=== PATIENT | male | born 1985 | race Caucasian/White ===

== ENCOUNTER 2017-07-24 19:45 | Emergency (ER) | payer BC ==
[~2017-07-24] VITALS: Ht 188 cm; Wt 107.8 kg
[~2017-07-24 19:45] MED LIST: MYCOPHENOLATE500 MG PO; PREDNISONE10 MG PO; URSODIOL500 MG PO; ZYRTEC10 M3 PO
[2017-07-24 20:30] LABS: HEMATOCRIT 42.7 % (38.0-50.0); MCHC 32.6 G/DL (30.0-36.0); MCV 89.1 FL (86-99); MEAN PLAT.VOLUME 9.5 uM^3 (9.0-12.4); PLATELET COUNT 177 K/uL (156-360); RBC DIS.WIDTH-CV 13.1 % (11.8-14.6); RBC DIS.WIDTH-SD 42.9 % (39-53); RED BLOOD COUNT 4.79 M/uL (4.00-5.50)
[2017-07-24 20:43] LABS: CHLORIDE 108 mEq/L (99-109); POTASSIUM 4.6 mEq/L (3.7-5.4); SODIUM 141 mEq/L (136-147)
[2017-07-24 20:44] LABS: GLUCOSE 88 mg/dL (70-99)
[2017-07-24 20:46] LABS: ANION GAP 9 MEQ/L (2-14)
[2017-07-24 20:48] LABS: GFR ESTIMATE (CALCULATED) > 59 mL/min/
[2017-07-24 20:49] LABS: UREA NITROGEN (BUN) 22 mg/dL (9-23)
[2017-07-24 20:50] LABS: TROP-I INTERPRETATION NEGATIVE; TROPONIN-I < 0.01 ng/mL (0.0-0.30)
[2017-07-24 21:48] LABS: D-DIMER ELISA < 150.00 ng/mLDDU (<230)
[2017-07-24 23:26] LABS: TROP-I INTERPRETATION NEGATIVE; TROPONIN-I < 0.01 ng/mL (0.0-0.30)
[2017-07-24 23:40] VITALS: BP 136/77
== END 2017-07-24 23:45 | disposition home or self-care (01) ==
LOC: EME 19:45
PROVIDERS: Physician Assistant
DX: R07.9 Chest pain, unspecified (principal); K75.4 Autoimmune hepatitis
CPT/HCPCS: 71020; 80048; 84484; 85027; 85379; 93005; 99281; 99285